=== PATIENT | male | born 1990 | race African-American/Black ===

== ENCOUNTER 2016-06-03 12:59 | Emergency (ER) | payer SELFPAY ==
[2016-06-03 13:13] VITALS: BP 136/82
--- NOTE | 2016-06-03 13:31 | UC ---
Throat Pain/Nasal Stanislaw HPI - HPI Summary HPI Summary: ST, swollen lymph nodes on L neck starting 3-4 days ago. Denies fever or cough. No known hx of mono. - History of Current Complaint Chief Complaint: UCRespiratory Stated Complaint: THROAT/GLANDS Time Seen by Provider: 06/03/16 13:13 Hx Obtained From: Patient Onset/Duration: Gradual Onset, Lasting Days Severity: Moderate Cough: None Associated Signs & Symptoms: Negative: Nasal Discharge, Fever, Vomiting, Rash - Allergies/Home Medications Allergies/Adverse Reactions: Allergies Allergy/AdvReac Type Severity Reaction Status Date / Time No Known Allergies Allergy Verified 01/30/15 10:28 Home Medications: Home Medications Misc Natural Products [Glucosamine Chondroitin A] 1 tab PO 06/03/16 [History] PMH/Surg Hx/FS Hx/Imm Hx - Surgical History Surgical History: Yes Surgery Procedure, Year, and Place: bilat knee sx - Family History Known Family History: Positive: Hypertension - Social History Occupation: Employed Part-time - [employer] Alcohol Use: Weekly Substance Use Type: None Smoking Status (MU): Heavy Every Day Tobacco Smoker Type: Cigarettes Amount Used/How Often: 1 ppd Review of Systems Constitutional: Negative Skin: Negative Eyes: Negative ENT: Sore Throat Respiratory: Negative Cardiovascular: Negative Gastrointestinal: Negative Genitourinary: Negative Motor: Negative Neurovascular: Negative Musculoskeletal: Negative Neurological: Negative Psychological: Negative All Other Systems Reviewed And Are Negative: Yes Physical Exam Triage Information Reviewed: Yes Appearance: Well-Appearing, No Pain Distress, Well-Nourished Vital Signs: Initial Vital Signs Temp 98.8 F 06/03/16 13:08 Pulse 76 06/03/16 13:08 Resp 18 06/03/16 13:08 BP 136/82 06/03/16 13:08 Pulse Ox 98 06/03/16 13:08 Vital Signs Reviewed: Yes Eye Exam: Normal Eyes: Positive: Conjunctiva Clear ENT: Positive: Pharyngeal erythema, TMs normal, Tonsillar swelling. Negative: Nasal congestion, Nasal drainage Dental Exam: Normal Neck: Positive: Supple, Nontender, Enlarged Nodes @ - L>R tonsillar Respiratory Exam: Normal Respiratory: Positive: Chest non-tender, Lungs clear, Normal breath sounds, No respiratory distress, No accessory muscle use Cardiovascular Exam: Normal Cardiovascular: Positive: RRR, No Murmur Musculoskeletal Exam: Normal Neurological Exam: Normal Psychological Exam: Normal Skin Exam: Normal Throat Pain/Nasal Course/Dx - Differential Dx/Diagnosis Provider Diagnoses: Tonsillitis, likely viral Discharge - Discharge Plan Condition: Stable Disposition: HOME Patient Education Materials: Tonsillitis (ED) Forms: *Work Release Additional Instructions: As we discussed, the vast majority of non-strep tonsillitis will resolve in 1-2 weeks without intervention. Come back if you are not feeling improvement within about a week, or if you are feeling suddenly worse at any time (especially if you start having difficulty with breathing or swallowing liquids).
== END 2016-06-03 13:52 | disposition home or self-care (01) ==
LOC: UCEAST 12:59
DX: J03.90 Acute tonsillitis, unspecified (principal); R03.0 Elevated blood-pressure reading, without diagnosis of hypertension; F17.210 Nicotine dependence, cigarettes, uncomplicated
CPT/HCPCS: 87651; 99211; G0463

== ENCOUNTER 2017-02-26 05:21 | Emergency (ER) | payer SELFPAY ==
[2017-02-26 05:27] VITALS: BP 161/102
[2017-02-26] MEDS ORDERED: NS 0.9% 1000 ML* 2,000 ML IV ONE (05:41)
[2017-02-26] MEDS ORDERED: Morphine INJ* 4 MG/ML 1 ML CARPUJECT IV ONE (05:45)
[2017-02-26] MEDS ORDERED: Metoclopramide IV* 5 MG/ML 2 ML VIAL IV SLOW PU ONE (05:45)
[2017-02-26] MEDS ORDERED: Acetaminophen TAB* 325 MG PO ONE (05:51)
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
== END 2017-02-26 06:08 | disposition left against medical advice (07) ==
LOC: ED 05:21
DX: M54.2 Cervicalgia (principal); R50.9 Fever, unspecified; V89.2XXA Person injured in unspecified motor-vehicle accident, traffic, initial encounter; Y92.9 Unspecified place or not applicable; Z53.21 Procedure and treatment not carried out due to patient leaving prior to being seen by health care provider
CPT/HCPCS: 99282

== ENCOUNTER 2017-05-24 11:42 | Emergency (ER) | payer SELFPAY ==
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
[2017-05-24 14:56] VITALS: BP 141/89
== END 2017-05-24 15:08 | disposition home or self-care (01) ==
LOC: UCEAST 11:42
DX: S02.2XXA Fracture of nasal bones, initial encounter for closed fracture (principal); S63.502A Unspecified sprain of left wrist, initial encounter; V47.1XXA Car passenger injured in collision with fixed or stationary object in nontraffic accident, initial encounter; Y93.89 Activity, other specified; Y92.488 Other paved roadways as the place of occurrence of the external cause; F17.210 Nicotine dependence, cigarettes, uncomplicated
CPT/HCPCS: 70160; 99213; G0463

== ENCOUNTER 2017-10-01 16:04 | Emergency (ER) | payer SELFPAY ==
[2017-10-01] MEDS ORDERED: Tetan/Diph/Pertus SYR(Tdap)* 0.5 ML SYR(BOOSTRIX) use SYR IM ONE (16:25)
[2017-10-01 17:01] VITALS: BP 139/83
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
== END 2017-10-01 16:59 | disposition home or self-care (01) ==
LOC: ED 16:04
DX: S61.412A Laceration without foreign body of left hand, initial encounter (principal); W26.0XXA Contact with knife, initial encounter; Y92.89 Other specified places as the place of occurrence of the external cause; F17.210 Nicotine dependence, cigarettes, uncomplicated
CPT/HCPCS: 12001; 90471; 90715; 99282

== ENCOUNTER 2018-06-28 08:02 | Emergency (ER) | payer MEDICAID ==
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
[2018-06-28 11:35] VITALS: BP 144/76
== END 2018-06-28 11:41 | disposition home or self-care (01) ==
LOC: UCEAST 08:02
DX: M54.5 Low back pain (principal); I10 Essential (primary) hypertension; F17.210 Nicotine dependence, cigarettes, uncomplicated
CPT/HCPCS: 72110; 99212; G0463

== ENCOUNTER 2018-07-05 08:14 | Emergency (ER) | payer MEDICAID, OTHER ==
[2018-07-05] MEDS ORDERED: Ketorolac INJ* 60 MG/2 ML VIAL IM ONE (08:50)
[2018-07-05 09:03] VITALS: BP 144/96
--- NOTE | 2018-07-05 09:38 | ED ---
Back Pain - HPI Summary HPI Summary: Patient is a 28-year-old male with a three-day history of right sided lower back pain. He denies any trauma or injury. He has never had this pain before. He was seen in urgent care 3 days ago and prescribed a muscle relaxer and naproxen. He states this has not improved his symptoms so he discontinued taking them after a day. He denies any fevers, sweats, chills, difficulty with urination or having bowel movements, weakness or numbness or tingling. Symptoms are better with sitting, worse with standing. - History of Current Complaint Chief Complaint: EDBackInjuryPain Stated Complaint: BACK PAIN PER PT Time Seen by Provider: 07/05/18 08:32 Hx Obtained From: Patient Onset/Duration: Gradual Onset Onset/Duration: Started Hours Ago Timing: Constant Back Pain Location: Is Discrete @ - right lower back pain Severity Initially: Moderate Severity Currently: Moderate Pain Intensity: 8 Pain Scale Used: 0-10 Numeric Character: Aching Aggravating Symptom(s): Movement, Lifting, Bending, Walking Associated Signs And Symptoms: Negative: Swelling, Redness, Bruising, Weakness, Numbness, Bladder Incontinence, Bowel Incontinence - Risk Factors AAA Risk Factors: Negative TAD Risk Factors: Negative Cauda Equina Risk Factors: Negative Epidural Abscess Risk Factors: Negative - Allergies/Home Medications Allergies/Adverse Reactions: Allergies Allergy/AdvReac Type Severity Reaction Status Date / Time No Known Allergies Allergy Verified 07/05/18 08:33 PMH/Surg Hx/FS Hx/Imm Hx Previously Healthy: Yes History: Denies: Hx Acute Renal Failure Sensory History: Denies: Hx Legally Blind Opthamlomology History: Denies: Hx Legally Blind - Surgical History Surgery Procedure, Year, and Place: bilat knee sx - Immunization History Date of Tetanus Vaccine: unk Date of Influenza Vaccine: none Hx Pertussis Vaccination: No Immunizations Up to Date: Yes Infectious Disease History: No Infectious Disease History: Denies: Traveled Outside the [place] in Last 30 Days - Family History Known Family History: Positive: Hypertension - Social History Occupation: Employed Full-time Lives: With Family Alcohol Use: Occasionally Hx Substance Use: No Substance Use Type: Reports: None Hx Tobacco Use: Yes Smoking Status (MU): Light Every Day Tobacco Smoker Type: Cigarettes Amount Used/How Often: 1/2 ppd Review of Systems Constitutional: Negative Negative: Fever, Chills, Skin Diaphoresis Negative: Palpitations, Chest Pain Negative: Shortness Of Breath, Cough Positive: Arthralgia - right lower back pain Negative: Rash, Bruising Neurological: Negative All Other Systems Reviewed And Are Negative: Yes Physical Exam Triage Information Reviewed: Yes Vital Signs On Initial Exam: Initial Vitals Temp Pulse Resp BP Pulse Ox 99.1 F 89 16 148/97 99 07/05/18 08:27 07/05/18 08:27 07/05/18 08:27 07/05/18 08:27 07/05/18 08:27 Vital Signs Reviewed: Yes Appearance: Positive: Well-Appearing, Well-Nourished Skin: Positive: Warm, Skin Color Reflects Adequate Perfusion Head/Face: Positive: Normal Head/Face Inspection Eyes: Positive: EOMI, Conjunctiva Clear Neck: Positive: Supple, Nontender, No Lymphadenopathy Respiratory/Lung Sounds: Positive: Clear to Auscultation, Breath Sounds Present Cardiovascular: Positive: Pulses are Symmetrical in both Upper and Lower Extremities Musculoskeletal: Positive: Pain @ - right lower back pain Neurological: Positive: Sensory/Motor Intact, Alert, Oriented to Person Place, Time, Facial Symmetry Psychiatric: Positive: Normal, Affect/Mood Appropriate Diagnostics - Vital Signs Vital Signs Temp Pulse Resp BP Pulse Ox 07/05/18 09:01 98.8 F 89 18 144/96 96 07/05/18 08:27 99.1 F 89 16 148/97 99 - Laboratory Lab Statement: Any lab studies that have been ordered have been reviewed, and results considered in the medical decision making process. Back Pain Course/Dx - Course Course Of Treatment: Patient is evaluated for right-sided lower back tenderness. Pain to palpation of the sciatic notch. Straight leg raise positive. No tenderness throughout the lower extremity otherwise, no numbness or tingling. No urinary symptoms and no CVA tenderness bilaterally. Denies any fevers, sweats, chills. Patient is encouraged moist heat and gentle stretches. Discussed sciatic pain and lumbar radiculopathy. Toradol and steroids are given for relief. He will follow up with [facility] if symptoms worsen. - Diagnoses Differential Diagnosis/HQI/PQRI: Positive: Herniated Disc, Strain, Sprain, Other - Sciatica, lumbar radiculopathy, piriformis syndrome Provider Diagnoses: Sciatic leg pain Discharge - Sign-Out/Discharge Documenting (check all that apply): Patient Departure Patient Received Moderate/Deep Sedation with Procedure: No - Discharge Plan Condition: Stable Disposition: HOME Prescriptions: Ketorolac TAB * [Toradol TAB *] 10 mg PO Q6H #16 tab predniSONE TAB* [Deltasone TAB*] 50 mg PO DAILY #5 tab MDD 1 Patient Education Materials: Sciatica (ED), Lumbar Radiculopathy (ED), Lower Back Exercises (ED) Referrals: [facility] [Outside] No Primary Care Phys,NOPCP [Primary Care Provider] - Additional Instructions: Moist heat to the area as much as possible Tennis ball over the sciatic joint Gentle stretches after heat has been applied Prednisone once daily x 5 days Toradol four times daily x 4 days DO NOT TAKE ANY NAPROXEN OR IBUPROFEN WHILE TAKING THIS MEDICATION You may resume your naproxen after toradol is gone As discussed, [employer] videos on sciatica pain and relief may be of help - Billing Disposition and Condition Condition: STABLE Disposition: Home
== END 2018-07-05 09:01 | disposition home or self-care (01) ==
LOC: ED 08:14
DX: M54.30 Sciatica, unspecified side (principal); M79.604 Pain in right leg; F17.210 Nicotine dependence, cigarettes, uncomplicated
CPT/HCPCS: 96374; 99282; J1885

== ENCOUNTER 2018-07-26 09:06 | Emergency (ER) | payer OTHER ==
[2018-07-26 09:25] VITALS: BP 158/83
--- NOTE | 2018-07-26 10:01 | UC ---
Back Pain HPI - HPI Summary HPI Summary: 28 yo male presents with low back pain. He tells me that for the last 1-2 months he has been having issues with lower back pain. He mentions that he was seen at and started with muscle relaxers and NSAIDs, but these did not help. Had an XR at that time, which was negative. His pain continued, therefore he went to the ER and was given toradol and prednisone and referred to physical therapy and [facility] for follow up. Today his pain has continued. He has not scheduled with [facility] or physical therapy. His pain has not changed. The pain is mostly on the right side of his lower back that radiates into his right leg. His right leg feels weak at times. He denies saddle anesthesia, dysuria, or loss of bowel/bladder control. No specific injury. - History of Current Complaint Chief Complaint: UCBackPain Stated Complaint: LOWER BACK PAIN Time Seen by Provider: 07/26/18 09:59 Hx Obtained From: Patient Timing: Constant Severity Initially: Severe Severity Currently: Severe Pain Intensity: 10 Pain Scale Used: 0-10 Numeric - Allergies/Home Medications Allergies/Adverse Reactions: Allergies Allergy/AdvReac Type Severity Reaction Status Date / Time No Known Allergies Allergy Verified 07/26/18 09:25 PMH/Surg Hx/FS Hx/Imm Hx - Additional Past Medical History Additional PMH: None - Surgical History Surgical History: Yes Surgery Procedure, Year, and Place: bilat knee sx - Family History Known Family History: Positive: Hypertension - Social History Lives: With Family Alcohol Use: Occasionally Substance Use Type: None Smoking Status (MU): Light Every Day Tobacco Smoker Type: Cigarettes Amount Used/How Often: 1/2 ppd Review of Systems All Other Systems Reviewed And Are Negative: Yes Constitutional: Positive: Negative Skin: Positive: Negative Respiratory: Positive: Negative Cardiovascular: Positive: Negative Gastrointestinal: Positive: Negative Motor: Positive: Negative Neurovascular: Positive: Negative Musculoskeletal: Positive: Other: - Low back pain Neurological: Positive: Negative Psychological: Positive: Negative Physical Exam - Summary Physical Exam Summary: GENERAL: NAD. WDWN. No pain distress. SKIN: No rashes, sores, lesions, or open wounds. NECK: Supple. FROM. Nontender. No lymphadenopathy. CHEST: CTAB. No r/r/w. No accessory muscle use. Breathing comfortably and in no distress. CV: RRR. Without m/r/g. Pulses intact. Cap refill <2seconds MSK: TTP over lumbar paraspinal muscles R>L. Pain with flexion and extension of spine. Positive SLR on right for low back pain without radiation. Strength 5/5 B /L LEs including dorsiflexion and plantar flexion. FROM B/L LEs. No edema. NEURO: Alert. Sensations intact B/L LEs L3-S1. Reflexes intact PSYCH: Age appropriate behavior. Triage Information Reviewed: Yes Vital Signs: Initial Vital Signs Temp 99.3 F 07/26/18 09:14 Pulse 101 07/26/18 09:14 Resp 18 07/26/18 09:14 BP 158/83 07/26/18 09:14 Pulse Ox 98 07/26/18 09:14 Vital Signs Reviewed: Yes Back Pain Course/Dx - Course Course Of Treatment: Suspect continues sciatica vs lumbar disc pathology. Discussed at length the importance of physical therapy and PCP/outpatient follow up. He agrees to schedule these appointments, therefore will refer him back to PT and with [facility] for further eval. Continue ibuprofen and will rx for lidoderm patch to use prn. - Differential Dx/Diagnosis Provider Diagnosis: Low back pain Discharge - Sign-Out/Discharge Documenting (check all that apply): Patient Departure All imaging exams completed and their final reports reviewed: No Studies - Discharge Plan Condition: Stable Disposition: HOME Prescriptions: Lidocaine PATCH 5%* [Lidoderm 5% Patch*] 1 patch TRANSDERM DAILY PRN #10 patch PRN Reason: Pain Patient Education Materials: Sciatica (ED), Lower Back Exercises (ED) Referrals: No Primary Care Phys,NOPCP [Primary Care Provider] - [facility] [Provider Group] - As Soon As Possible Additional Instructions: If you develop a fever, shortness of breath, chest pain, new or worsening symptoms - please call your PCP or go to the ED. Your blood pressure was mildly elevated at todays visit. Please see your primary provider within 4 weeks for recheck and re-evaluation. 1) It is very important that you call physical therapy to schedule an appointment for further treatment 2) Please also call [facility] at the number below to schedule an appointment regarding your back pain - Billing Disposition and Condition Condition: STABLE Disposition: Home
== END 2018-07-26 10:28 | disposition home or self-care (01) ==
LOC: UCEAST 09:06
DX: M54.5 Low back pain (principal); F17.210 Nicotine dependence, cigarettes, uncomplicated
CPT/HCPCS: 99212; G0463

== ENCOUNTER 2018-08-22 14:19 | Emergency (ER) | payer OTHER ==
--- OUTSIDE RECORDS SUMMARY | 2018-08-22 14:32 | XMS REPORT | Continuity of Care Document ---
:1990 External Reference #:[id number] Author Name Cha Garcia Care Team Providers Name Role Phone Trang Leal M.D. 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 Payers Date Identification Numbers Payment Provider Subscriber Policy Number: [id number] John Winslow PayID: [id number] [address] [place] [address] Advance Directives Description No Information Available Problems Active Problems Provider Date Left side sciatica Nick Hutchins MD Onset: 07/31/2018 Right side sciatica Nick Hutchins MD Onset: 07/31/2018 Wrist joint pain Nick Hutchins MD Onset: 07/31/2018 Low back pain Nick Hutchins MD Onset: 07/31/2018 Family History Description No Information Available Social History Type Date Description Comments Sex Unknown Tobacco Use Start: Unknown Light tobacco smoker (10 or fewer cigarettes/day) Smoking Status Reviewed: 07/31/18 Light tobacco smoker (10 or fewer cigarettes/day) Allergies, Adverse Reactions, Alerts Description No Information Medications Active Medications SIG Qnty Indications Ordering Date Provider Cyclobenzaprine HCL 1 by mouth three 90tabs M54.5 Nick Hutchins MD 07/31/2018 10mg times a day Tablets Naproxen Out Of This Med- Unknown 500mg Tablets 1 by mouth twice a day Cyclobenzaprine HCL Out Of This Med- Unknown 10mg 1 by mouth three Tablets times a day Lidocaine apply 1 patch to Unknown 5% Patches the affected area daily. leave on for 12 hours and then off for 12 hours. Immunizations Description No Information Available Vital Signs Date Vital Result Comment 07/31/2018 9:24am Height 73.5 inches 6'1.50" Weight 255.00 lb Heart Rate 96 /min BP Systolic 142 mmHg BP Diastolic 94 mmHg Respiratory Rate 16 /min Body Temperature 97.8 F Pain Level 7 O2 % BldC Oximetry 97 % BMI (Body Mass Index) 33.2 kg/m2 Results Description No Information Available Procedures Description No Information Available Encounters Description No Information Available Plan of Treatment 07/31/2018 - Nick Hutchins, MDM54.5 Low back painNew Medication:Cyclobenzaprine HCL 10 mg - 1 by mouth three times a dayNew Xrays:MRI Lumbar Spine W/O, Ordered: M25.532 Pain in left wristNew Xrays:Wrist Left 2 VWS, Ordered: M54.31 Sciatica, right sideM54.32 Sciatica, left side
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
[2018-08-22 22:50] VITALS: BP 0/0
== END 2018-08-22 22:49 | disposition home or self-care (01) ==
LOC: ED 14:19
DX: G95.29 Other cord compression (principal); F17.210 Nicotine dependence, cigarettes, uncomplicated; M41.84 Other forms of scoliosis, thoracic region; M51.24 Other intervertebral disc displacement, thoracic region
CPT/HCPCS: 72141; 72146; 99282

== ENCOUNTER 2021-04-10 21:06 | Observation (INO) ==
[2021-04-10] MEDS ORDERED: Diltiazem IV push/loading dose 5 MG/ML 5 ML vial (25 mg) IV PUSH ONE (21:12)
[2021-04-10] MEDS ORDERED: Diltiazem IV push/loading dose 5 MG/ML 5 ML vial (25 mg) ONE (21:17)
[2021-04-10 21:28] LABS: Hematocrit 47 % (42-52); Hemoglobin 15.9 g/dL (14.0-18.0); Mean Corpuscular HGB Conc 34 g/dL (31-36); Mean Corpuscular Hemoglobin 30 pg (27-31); Mean Corpuscular Volume 89 fL (80-94); Mean Platelet Volume 9.8 fL (7.4-10.4); Platelet Count 169 10^3/uL (150-450); Red Blood Count 5.28 10^6 /uL (4.18-5.48); Red Cell Distribution Width 14 % (10-15); White Blood Count 9.4 10^3/uL (3.5-10.8)
[2021-04-10 21:29] LABS: ABS Eosinophils 0.1 10^3/ul (0-0.6); ABS Lymphocytes 3.5 10^3/ul (1.0-4.8); ABS Monocytes 0.8 10^3/ul (0-0.8); ABS Neutrophils 4.9 10^3/ul (1.5-7.7); Eosinophil % 1.4 %; Lymphocyte % 37.6 %; Nucleated Red Blood Cells % 0.1
[2021-04-10 21:51] LABS: ALT 31 U/L (7-52); AST 24 U/L (13-39); Albumin 4.8 g/dL (3.2-5.2); Albumin/Globulin Ratio 1.5 (1-3); Alcohol, S < 13 mg/dL (<13); Alkaline Phosphatase 56 U/L (35-149); Anion Gap 10 mmol/L (2-11); Blood Urea Nitrogen 13 mg/dL (6-24); CO2 Carbon Dioxide 26 mmol/L (22-32); Calcium 9.6 mg/dL (8.6-10.3); Chloride 104 mmol/L (101-111); Creatine Kinase 224 U/L (10-223); Globulin 3.3 g/dL (2-4); Glucose 132 mg/dL (70-100); Potassium 3.2 mmol/L (3.5-5.0); Sodium 140 mmol/L (135-145); Total Protein 8.1 g/dL (6.4-8.9); eGFR CKD-EPI 84.5 (>60)
[2021-04-10 21:52] LABS: Troponin I 0.01 ng/mL (<0.03)
[2021-04-10] MEDS ORDERED: Diltiazem IV BAG D5W Premix 125 MG/125 ML BAG IV SCH (22:00)
[2021-04-10 22:04] LABS: Urine Appearance Cloudy; Urine Bilirubin Negative (Negative); Urine Blood Negative (Negative); Urine Color Yellow; Urine Glucose Negative (Negative); Urine Ketones Negative (Negative); Urine Nitrite Negative (Negative); Urine Protein 2+(100 mg/dL) (Negative); Urine Specific Gravity 1.023 (1.002-1.030); Urine Urobilinogen Negative (Negative)
[2021-04-10 22:05] LABS: TSH Ultra Thyroid Stim Horm 7.46 mcIU/mL (0.34-5.60)
[2021-04-10] MEDS ORDERED: Lactated Ringers 1000 ml BAG 1,000 ML IV ONE (22:16)
[2021-04-10 22:24] LABS: Urine Benzodiazepine Screen None Detected (None Detect); Urine Cannabinoids Screen None Detected (None Detect); Urine Opiates Screen None Detected (None Detect)
[2021-04-10 22:32] LABS: Urine Bacteria Absent (Absent); Urine Red Blood Cell Trace(0-2/hpf) (Absent); Urine Squamous Epithelial Cell Present (Absent); Urine White Blood Cell 3+(>20/hpf) (Absent)
[2021-04-11] MEDS ORDERED: NS 0.9% 1000 ml BAG 1,000 ML IV SCH (00:30)
[2021-04-11] MEDS ORDERED: Potassium Chlor 20 meq TAB.ER PO ONE (01:46)
[2021-04-11] MEDS ORDERED: [UNRECOGNIZED DRUG - OTHER] IV ONE (03:33)
[2021-04-11 06:42] LABS: Potassium 3.9 mmol/L (3.5-5.0); eGFR CKD-EPI 111.8 (>60)
[2021-04-11] MEDS ORDERED: Flu vaccine *QUAD* 2021-22* 0.5 ML SYRINGE IM ONE (09:00)
[2021-04-11 10:54] VITALS: BP 123/76
== END 2021-04-11 10:25 | disposition home or self-care (01) ==
LOC: EDHOLD 21:06 → ED 21:06 → SUATTDRO 04-11 01:20 → MEDTELE 04-11 03:46
PROVIDERS: ADMIT Internal Medicine; ATTEND Student in an Organized Health Care Education/Training Program